=== PATIENT | female | born 1985 | race Caucasian/White ===

== ENCOUNTER → 2016-04-20 | Outpatient (CLI) | payer OTHER ==
[~2016-04-20] MED LIST: ADDERALL20 MG PO; DULCOLAX5 MG PO; ENDOCET 5-3251 EACH PO; IBUPROFEN800 MG PO; PAXIL20 MG PO; PAXIL40 MG PO; PROBIOTIC1 EAC1 PO
== END | disposition home or self-care (01) ==
LOC: CDC 15:35
DX: Z01.810 Encounter for preprocedural cardiovascular examination (principal)
CPT/HCPCS: 93000

== ENCOUNTER 2016-04-22 08:09 | Day surgery (SDC) | payer OTHER ==
[~2016-04-22] VITALS: Ht 170.2 cm; Wt 83.0 kg
[~2016-04-22 08:09] MED LIST changes: -DULCOLAX5 MG PO
[2016-04-22] MEDS ORDERED: DULCOLAX5 MG PO (08:42)
[2016-04-22 08:48] VITALS: BP 107/62
[2016-04-22 10:00] LABS: METH RESISTANT S AUREUS PCR NEGATIVE (NEGATIVE); PROBE CHECK PASS; SPECIMEN PROCESSING CONTROL PASS
[2016-04-22] MEDS ORDERED: ENDOCET 5-3251 EACH PO (12:42)
[2016-04-22] MEDS ORDERED: IBUPROFEN800 MG PO (12:42)
[2016-04-22 14:55] VITALS: BP 115/63
[2016-04-22 15:30] VITALS: BP 107/60
== END 2016-04-22 15:35 | disposition home or self-care (01) ==
LOC: SDC
PROVIDERS: Obstetrics & Gynecology
PROC: 0UT94ZZ Resection of Uterus, Percutaneous Endoscopic Approach (ICD-10-PCS; principal; 2016-04-22)
PROC: 0UT74ZZ Resection of Bilateral Fallopian Tubes, Percutaneous Endoscopic Approach (ICD-10-PCS; principal; 2016-04-22)
DX: R10.2 Pelvic and perineal pain (principal); N94.6 Dysmenorrhea, unspecified; K21.9 Gastro-esophageal reflux disease without esophagitis; F17.200 Nicotine dependence, unspecified, uncomplicated
CPT/HCPCS: 87641; 88307; J0690; J1885; J2250; J2270; J3010; J7120

== ENCOUNTER 2016-12-03 05:42 | Day surgery (SDC) | payer OTHER ==
[~2016-12-03] VITALS: Ht 172.7 cm; Wt 90.7 kg
[~2016-12-03 05:42] MED LIST changes: +DULCOLAX5 MG PO; +IBUPROFEN200 M1 PO; +IRON325 M1 PO; +MAGNESIUM250 MG PO; -PROBIOTIC1 EAC1 PO; +PROBIOTIC1 EAC3 PO
[2016-12-03 06:53] VITALS: BP 119/64
[2016-12-03 07:34] LABS: METH RESISTANT S AUREUS PCR NEGATIVE (NEGATIVE); PROBE CHECK PASS; SPECIMEN PROCESSING CONTROL PASS
[2016-12-03 09:45] VITALS: BP 108/76
[2016-12-03 10:17] VITALS: BP 121/79
== END 2016-12-03 10:25 | disposition home or self-care (01) ==
LOC: SDC 05:42
PROVIDERS: Obstetrics & Gynecology
PROC: 0UBG7ZZ Excision of Vagina, Via Natural or Artificial Opening (ICD-10-PCS; principal; 2016-12-03)
DX: N94.10 Unspecified dyspareunia (principal); N84.2 Polyp of vagina; R10.2 Pelvic and perineal pain; Z90.710 Acquired absence of both cervix and uterus; F17.210 Nicotine dependence, cigarettes, uncomplicated; G47.419 Narcolepsy without cataplexy; K21.9 Gastro-esophageal reflux disease without esophagitis; F41.9 Anxiety disorder, unspecified; L30.9 Dermatitis, unspecified; G43.909 Migraine, unspecified, not intractable, without status migrainosus; Z88.8 Allergy status to other drugs, medicaments and biological substances
CPT/HCPCS: 87641; 88305; J1100; J1885; J2175; J2250; J2405; J3010

== ENCOUNTER → 2017-09-19 | Outpatient (CLI) | payer OTHER ==
[~2017-09-19] VITALS: Ht 172.7 cm; Wt 102.1 kg
[~2017-09-19] MED LIST changes: +ATIVAN0.5 MG PO; +BIOTIN1 MG PO; +CLARITIN,ALAVAR10 MG PO; +FLONASE16 G1 BOTH NARES; -IBUPROFEN200 M1 PO; +MOTRIN600 MG PO; -PAXIL40 MG PO; +TOPAMAX100 MG PO; +VISTARIL50 MG PO; +VITAMIN K100 MCG PO; +VRAYLAR1.5 MG PO
== END | disposition home or self-care (01) ==
LOC: AMB 10:04
PROC: 0DBE8ZX Excision of Large Intestine, Via Natural or Artificial Opening Endoscopic, Diagnostic (ICD-10-PCS; principal; 2017-09-19)
DX: R19.4 Change in bowel habit (principal); R10.31 Right lower quadrant pain; Z80.0 Family history of malignant neoplasm of digestive organs; Z80.41 Family history of malignant neoplasm of ovary; Z80.3 Family history of malignant neoplasm of breast; F17.200 Nicotine dependence, unspecified, uncomplicated; Z88.1 Allergy status to other antibiotic agents; Z88.2 Allergy status to sulfonamides; Z88.5 Allergy status to narcotic agent; Z88.8 Allergy status to other drugs, medicaments and biological substances; Z91.040 Latex allergy status; Z91.048 Other nonmedicinal substance allergy status
CPT/HCPCS: 88305